=== PATIENT | female | born 1990 | race Caucasian/White ===

== ENCOUNTER 2022-12-21 10:53 | Emergency (ER) | payer BC ==
[~2022-12-21] VITALS: Ht 170.2 cm; Wt 57.7 kg
[2022-12-21 11:17] VITALS: BP 113/91
[2022-12-21 11:46] LABS: CLARITY,URINE CLEAR (Clear); COLOR,URINE YELLOW (Yellow); GLUCOSE, URINE NEGATIVE (Neg); KETONES,URINE NEGATIVE (Neg); LEUKOCYTE ESTERASE ,URINE NEGATIVE (Neg); NITRITES, URINE NEGATIVE (Neg); OCCULT BLOOD,URINE NEGATIVE (Neg); PROTEIN,URINE NEGATIVE (Neg); URINE HCG NEGATIVE (NEG); UROBILINOGEN,URINE 0.2 E.U/dL (0.2-1.0)
[2022-12-21 11:47] LABS: UA COLLECTION TYPE CLN CATCH MIDSTREAM
[2022-12-21 11:52] LABS: ALANINE AMINOTRANSFERASE 16 U/L (12-78); ALBUMIN 4.1 G/DL (3.4-5.0); ALBUMIN/GLOBULIN RATIO 1.3 (1.1-1.5); ALKALINE PHOSPHATASE 29 IU/L (46-116); ANION GAP 9 (8-16); ASPARTATE AMINO TRANSFERASE 18 U/L (10-37); BILIRUBIN,TOTAL 0.5 MG/DL (0.1-1.0); BLOOD UREA NITROGEN 14 MG/DL (7-18); BUN/CREATININE RATIO 16.7 (10.0-20.0); CHLORIDE 104 MMOL/L (99-107); CREATININE 0.84 MG/DL (0.40-0.90); GLUCOSE 101 MG/DL (70-104); LIPASE 156 U/L (73-393); POTASSIUM 3.7 MMOL/L (3.5-5.1); SODIUM 140 MMOL/L (135-145); TOTAL CARBON DIOXIDE 27.4 MMOL/L (24-32); TOTAL PROTEIN 7.2 G/DL (6.4-8.2); eGFR 78 ML/MIN
[2022-12-21 11:53] LABS: BASOPHILS % (AUTO) 0.5 % (0-1); EOSINOPHILS # (AUTO) 1.3 X10'3 (0-0.9); EOSINOPHILS % (AUTO) 16.7 % (0-6); HEMATOCRIT 42.3 % (35.0-45.0); HEMOGLOBIN 14.9 g/dl (12.0-16.0); LYMPHOCYTES # (AUTO) 1.8 X10'3 (1.1-4.8); LYMPHOCYTES % (AUTO) 23.2 % (21-51); MEAN CORPUSCULAR HEMOGLOBIN 33.5 PG (27.0-31.0); MEAN CORPUSCULAR HGB CONC 35.3 g/dL (33.0-36.5); MEAN CORPUSCULAR VOLUME 95.1 FL (78-98); MEAN PLATELET VOLUME 9.2 FL (7.4-10.4); MONOCYTES # (AUTO) 0.6 X10'3 (0-0.9); NEUTROPHILS # (AUTO) 4.1 X10'3 (1.8-7.7); NEUTROPHILS % (AUTO) 51.6 % (42-75); PLATELET COUNT 286 X10'3 (140-440); RED BLOOD COUNT 4.45 X10'6 (4.20-5.60); RED CELL DISTRIBUTION WIDTH 12.2 % (11.5-14.5)
[2022-12-21] MEDS ORDERED: ondansetron 4mg rapidly disintigrating tab PO STA (13:22)
[2022-12-21] MEDS ORDERED: dicyclomine 10 MG capsule PO ONE (13:25)
[2022-12-21] MEDS ORDERED: ONDA4TAB12 PO ×2 (14:33→14:46)
[2022-12-21] MEDS ORDERED: DICY10CA88 PO ×2 (14:33→14:46)
== END 2022-12-21 14:53 | disposition home or self-care (01) ==
LOC: ER 10:53
DX: R10.9 Unspecified abdominal pain (principal); Z79.899 Other long term (current) drug therapy
CPT/HCPCS: 36415; 80053; 81003; 81025; 83690; 85025; 99283

== ENCOUNTER 2025-02-05 16:18 | Emergency (ER) | payer OTHER ==
[~2025-02-05] VITALS: Ht 165.1 cm; Wt 59.0 kg
[~2025-02-05 16:18] MED LIST: DICY10CA88 PO; ONDA-243 PO
--- NOTE | 2025-02-05 16:33 | Physician Documentation ---
History of Present Illness ~ Stated Complaint: DIARRHEA Time Seen by MD: 16:34 HPI 35 Year old female presents to the ED with a complaint of one week of intermittent diarrhea for about a week. States that one week ago she was in [place] and afterwards her symptoms began. Denies any other associated symptoms including abdominal cramping abdominal pain fevers nausea vomiting. Patient states her mother was diagnosed with C diff and she is very sensitive to any diarrheal symptoms. Patient states she did have some body aches and chills a few days ago at the beginning of her illness but denies any currently. She has no other concern or complaint at this time. Medication Reconciliation Allergies: Coded Allergies: No Known Allergies (Unverified , 12/21/22) Scheduled PRN Dicyclomine Hcl* (Bentyl*), 1 CAP PO Q6H PRN for ABDOMINAL PAIN ONDANSETRON ODT 4mg tablet (Ondansetron Odt), 1 TABLET PO Q6H PRN for nausea/vomiting Past Medical History Alcohol Use: Occasionally Drug Use: none Review of Systems Constitutional: Denies: fever, chills Eyes: Denies: discharge, itching ENT: Denies: ear pain, nose discharge, throat pain Respiratory: Denies: cough, shortness of breath Cardiovascular: Reports: no symptoms reported Gastrointestinal: Denies: abdominal pain, nausea, vomiting Genitourinary: Denies: burning, dysuria Female Genitalia: Denies: vaginal discharge, pelvic pain Neurological: Denies: headache, dizziness Musculoskeletal: Denies: pain, joint pain, muscle pain Integumentary: Denies: rash, lesions Allergic/Immunologic: Denies: hives, itching Hematologic/Lymphatic: Reports: no symptoms reported Endocrine: Reports: no symptoms reported Psychiatric: Reports: no symptoms reported Physical Exam Physical Exam General: Awake and Alert, no acute distress. HEENT: Conjunctiva pink, Sclera clear, Mucus Membranes moist. Neck: Supple without masses and tenderness. Resp: Unlabored. Lungs clear to auscultation bilaterally. Heart: Regular Rate and rhythm, normal S1 and S2 without murmur, rub or gallop. Abdomen: Soft and non tender no organomegaly, no rebound tenderness, no gua rding, abdomen nondistended Extremities: No cyanosis,clubbing or edema. Skin: Warm and Dry. Progress Results/Orders Results/Orders Vital Signs 02/05/25 16:26 Temp 97.6 Pulse 86 Resp 18 B/P (MAP) 120/78 Pulse Ox 98 Laboratory Tests Test 02/05/25 18:08 Microbiology Date/Time Source Procedure Growth Status 02/05/25 18:08 Stool WBC Smear - Final Resulted 02/05/25 18:08 Stool Stool Culture Pending Resulted 02/05/25 17:25 Blood Arm Right Blood Culture - Preliminary NEGATIVE (LESS THAN 24 HOURS) Resulted Medical Decision Making Findings 35 Year old female presents to the ED with a complaint of one week of intermittent diarrhea for about a week. States that one week ago she was in [place] and afterwards her symptoms began. Denies any other associated symptoms including abdominal cramping abdominal pain fevers nausea vomiting. Patient states her mother was diagnosed with C diff and she is very sensitive to any diarrheal symptoms. Patient states she did have some body aches and chills a few days ago at the beginning of her illness but denies any currently. She has no other concern or complaint at this time. Patient will begin taking Imodium ED or loperamide 2-4 mg two to 3 times a day as needed and will follow up with primary care for stool/ova stool sample testing and stool culture if no better in 2-3 days. Stool culture sent for C diff testing. Patient will return to ED with any worsening, concerning or changing symptoms. She will continue healthy diet and activity level and increase fluids as tolerated. Departure Disposition: HOME / SELF CARE / HOMELESS Impression: Primary Impression: Loose stools Condition: Stable Discharge Instructions: Diarrhea, Adult Additional Instructions: Patient will begin taking Imodium ED or loperamide 2-4 mg two to 3 times a day as needed and will follow up with primary care for stool/ova stool sample testing and stool culture if no better in 2-3 days. Stool culture sent for C diff testing. Patient will return to ED with any worsening, concerning or changing symptoms. She will continue healthy diet and activity level and increase fluids as tolerated. Referrals: NO PRIMARY CARE PROVIDER (PCP) Signature Scribe Signature: No scribe Attestation: No scribe ALETHEA YIN NP Feb 05, 2025 16:33 KAREN ROCA Feb 05, 2025 20:41
[2025-02-05 21:07] VITALS: BP 120/72; PULSE 84; RESP 16; TEMP 98.6; O2SAT 99
[2025-02-06 08:17] LABS: C DIFF ANTIGEN NEGATIVE (NEGATIVE); C DIFF SPECIMEN=DIARRHEA? ACCEPTABLE; C DIFFICILE TOXINS A&B NEGATIVE (Neg)
== END 2025-02-05 21:08 | disposition home or self-care (01) ==
LOC: ER 16:19
DX: R19.7 Diarrhea, unspecified (principal)
CPT/HCPCS: 36415; 87040; 87045; 87046; 87324; 87449; 89055; 99283